=== PATIENT | male | born 2000 | race Caucasian/White ===

== ENCOUNTER 2023-07-24 14:18 | Outpatient (REF) | payer MEDICAID, SELFPAY ==
--- NOTE | ~2023-07-24 | US_ITS ---
EXAMINATION: US SCROTUM CLINICAL INFORMATION: Left testicular mass. COMPARISON: None available. TECHNIQUE: A sonogram of the scrotum was performed assessing kingston-scale appearance and color Doppler flow. Spectral Doppler analysis of the arterial and venous flow were performed in the testes bilaterally. FINDINGS: RIGHT: Right testicle measures 4.0 x 2.0 x 2.8 cm, volume 11.4 mL. No focal testicular parenchymal lesions are visualized. A solitary central microcalcifications is of incidental note. Spectral Doppler analysis of the arterial and venous flow is normal in the right testis. Right epididymal head is normal in size. No right hydrocele or varicocele is seen. Right epididymal Doppler flow is normal. LEFT: Left testicle measures 4.3 x 2.0 x 3.3 cm, volume 14.4 mL. No focal testicular parenchymal lesions are visualized. Spectral Doppler analysis of the arterial and venous flow is normal in the left testis. Left epididymal head is normal in size. A 3 mm left epididymal head cyst versus spermatocele is seen. No left hydrocele or varicocele is seen. Left epididymal Doppler flow is normal. US/US scrotum IMPRESSION: 1. A 3 mm left epididymal head cyst versus spermatocele is seen. 2. There is no testicular mass or torsion. 3. No hydrocele or varicocele is seen.
== END 2023-07-24 14:19 | disposition home or self-care (01) ==
LOC: HO.US 14:18
PROVIDERS: Visit Provider Family Medicine
DX: N50.89 Other specified disorders of the male genital organs (principal)
CPT/HCPCS: 76870